=== PATIENT | male | born 1990 ===

== ENCOUNTER 2018-08-24 09:13 | Emergency (ER) | payer MEDICAID ==
[2018-08-24 09:15] VITALS: BMI 31.0
[2018-08-24 09:16] VITALS: RESP 17
[2018-08-24 09:25] VITALS: O2SAT 98
[2018-08-24] MEDS ORDERED: Sucralfate 1 gm/10 ml Oral Susp UD PO STA (09:56)
--- NOTE | 2018-08-24 10:30 | ED PDOC ---
HPI: Abdomen Time Seen by Provider: 08/24/18 09:22 Chief Complaint (Nursing): Abdominal Pain Chief Complaint (Provider): Abdominal Pain History Per: Patient History/Exam Limitations: no limitations Onset/Duration Of Symptoms: Days Current Symptoms Are (Timing): Still Present Location Of Pain/Discomfort: Epigastric Quality Of Discomfort: Burning Associated Symptoms: denies: Fever, Nausea Additional Complaint(s): Joe Winn is a 28 year old male with a past medical history of gastritis who is presenting to the ED for evaluation of acid reflux and epigastric pain onset 1 month ago. Patient states that he has presented to other [facility], [place] and [place] where they gave him antacids and told he had GERD. Dr. Devante Gaston switched him over to pantoprazole and scheduled him for an upper endoscopy fo4r September 05. Patient denies radiation of pain, nausea, back pain, fever, or chills. He admits that he came to the ED hoping that Dr. Gaston could see him here. PMD: Dr. Devante Gaston Past Medical History Reviewed: Historical Data, Nursing Documentation, Vital Signs Vital Signs: Last Vital Signs Temp 98.6 F 08/24/18 09:15 Pulse 81 08/24/18 09:15 Resp 17 08/24/18 09:15 BP 127/72 08/24/18 09:15 Pulse Ox 98 08/24/18 09:22 - Medical History PMH: Gastritis - Surgical History Surgical History: No Surg Hx - Family History Family History: States: Unknown Family Hx - Social History Current smoker - smoking cessation education provided: No Alcohol: None Drugs: Denies - Home Medications Home Medications: Ambulatory Orders Medication Instructions Recorded Sucralfate [Carafate] 1 gm PO QID #60 dose 08/24/18 - Allergies Allergies/Adverse Reactions: Allergies Allergy/AdvReac Type Severity Reaction Status Date / Time No Known Allergies Allergy Verified 08/24/18 09:22 Review of Systems ROS Statement: Except As Marked, All Systems Reviewed And Found Negative Constitutional: Negative for: Fever, Chills Gastrointestinal: Positive for: Abdominal Pain. Negative for: Nausea Musculoskeletal: Negative for: Back Pain Physical Exam - Reviewed Nursing Documentation Reviewed: Yes Vital Signs Reviewed: Yes - Physical Exam Appears: Positive for: Well (but mildly anxious appearing ), Non-toxic, No Acute Distress Head Exam: Positive for: ATRAUMATIC, NORMAL INSPECTION, NORMOCEPHALIC Skin: Positive for: Normal Color, Warm, DRY Cardiovascular/Chest: Positive for: Regular Rate, Rhythm. Negative for: Murmur Respiratory: Positive for: Normal Breath Sounds. Negative for: Respiratory Distress Gastrointestinal/Abdominal: Positive for: Soft, Tenderness (mild epigastric tenderness ) Back: Positive for: Normal Inspection Neurologic/Psych: Positive for: Alert, Oriented. Negative for: Motor/Sensory Deficits - ECG O2 Sat by Pulse Oximetry: 98 (RA) Pulse Ox Interpretation: Normal Medical Decision Making Medical Decision Making: Time: 9:56 Plan: --Carafate 1 gm PO --Lidocaine 15 ml PO Provider spoke with Dr. Gaston who stated that if ther eis no acute emergency he will see patient throught outpatient followup. Scribe Attestation: Documented by Indu Serna, acting as a scribe for Phuong Cortez MD. Provider Scribe Attestation: All medical record entries made by the Scribe were at my direction and perso jose dictated by me. I have reviewed the chart and agree that the record accurately reflects my personal performance of the history, physical exam, medical decision making, and the department course for this patient. I have also personally directed, reviewed, and agree with the discharge instructions and disposition. patient is feeling slightly better. It appears that he is concerned that someth ing life threatening may be present. Reassured that he can wait for the elective EGD for definitive diagnosis and treatment. Disposition - Clinical Impression Clinical Impression: Abdominal discomfort - Patient ED Disposition Is Patient to be Admitted: No Doctor Will See Patient In The: Office Counseled Patient/Family Regarding: Diagnosis, Need For Followup, Rx Given - Disposition Referrals: Devante Gaston MD [Staff Provider] - Disposition: Routine/Home Disposition Time: 11:30 Condition: STABLE Prescriptions: Sucralfate [Carafate] 1 gm PO QID #60 dose Instructions: Stomach Ache and Stomach Upset Forms: [email or web address] ([place]), [facility] ED School/Work Excuse Print Language: SINHALA - POA Present On Arrival: None
[2018-08-24 12:22] VITALS: BP 100/60; PULSE 78; TEMP 98
== END 2018-08-24 12:22 | disposition home or self-care (01) ==
LOC: H.ER 09:13
DX: R10.13 Epigastric pain (principal)

== ENCOUNTER 2018-08-29 10:33 | Observation (INO) | payer MEDICAID ==
[2018-08-29 10:33] VITALS: BMI 31.0
[2018-08-29] MEDS ORDERED: Sodium Chloride 0.9% 1,000 ML IV STA (10:52)
[2018-08-29] MEDS ORDERED: Sodium Chloride 0.9% 10 ML IV ONE (11:04)
[2018-08-29 11:05] LABS: BASO % 0.3 % (0.0-2.0); EOS % 0.4 % (0.0-4.0); HEMOGLOBIN 16.5 g/dL (12.0-18.0); LYMPH # 1.8 K/uL (1.0-4.3); LYMPH % 18.7 % (20.0-40.0); MEAN CELL VOLUME 85.2 fl (80.0-94.0); MEAN CORPUSCULAR HEMOGLOBIN 28.7 pg (27.0-31.0); MEAN CORPUSCULAR HGB CONC 33.7 g/dL (33.0-37.0); MONO # 0.8 K/uL (0.0-0.8); MONO % 8.2 % (0.0-10.0); NEUT # 7.1 K/uL (1.8-7.0); NEUT % 72.4 % (50.0-75.0); NRBC % 0.2 % (0.0-0.0); RBC 5.74 Mil/uL (4.40-5.90); RED CELL DISTRIBUTION WIDTH 12.9 % (11.5-14.5); WHITE BLOOD COUNT 9.8 K/uL (4.8-10.8)
[2018-08-29 11:12] LABS: PROTHROMBIN TIME 11.8 Seconds (9.8-13.1)
[2018-08-29 11:14] LABS: PARTIAL THROMBOPLASTIN TIME 32.3 Seconds (25.6-37.1)
[2018-08-29 11:15] LABS: ALB/GLOB RATIO 1.4 (1.0-2.1); ALBUMIN 5.3 g/dL (3.5-5.0); ALT/SGPT 108 U/L (21-72); AST/SGOT 61 U/L (17-59); BLOOD UREA NITROGEN 6 mg/dl (9-20); CALCIUM 10.5 mg/dL (8.4-10.2); GFR NON-AFRICAN AMERICAN > 60; LIPASE 295 U/L (23-300)
[2018-08-29 11:36] LABS: URINE BILIRUBIN NEGATIVE (NEGATIVE); URINE BLOOD NEGATIVE (NEGATIVE); URINE CLARITY CLEAR (Clear); URINE COLOR STRAW (YELLOW); URINE GLUCOSE (UA) NEG (NEGATIVE); URINE LEUKOCYTE ESTERASE NEG Leu/uL (Negative); URINE PROTEIN NEGATIVE (NEGATIVE); URINE UROBILINOGEN 0.2-1.0 mg/dL (0.2-1.0)
--- NOTE | 2018-08-29 12:00 | RAD ---
Date of service: 08/29/2018 HISTORY: Chest pain COMPARISON: No prior. TECHNIQUE: Chest PA and lateral FINDINGS: LINES AND TUBES: None. LUNG AND PLEURA: The lungs are well inflated and clear. No pleural effusion or pneumothorax. HEART AND MEDIASTINUM: The heart is not enlarged. No aortic atherosclerotic calcifications present. The hilar and mediastinal contours are within normal limits. SKELETAL STRUCTURES: The bony structures are within normal limits for the patient's age. VISUALIZED UPPER ABDOMEN: Normal. OTHER FINDINGS: None. IMPRESSION: No active pulmonary disease.
--- NOTE | 2018-08-29 12:29 | ED PDOC ---
HPI: Abdomen Time Seen by Provider: 08/29/18 10:46 Chief Complaint (Nursing): GI Problem Chief Complaint (Provider): GI Problem History Per: [employer] (Ever#[id number]: Slava) History/Exam Limitations: language barrier (irish) Onset/Duration Of Symptoms: Persistent (x1 month) Current Symptoms Are (Timing): Still Present Additional Complaint(s): 28 year old male with no significant pmHx, presents to ED with complaints of increasing upper abdominal pain with burning sensation for 1 month. He reports associated nausea, loss of appetite, small amount of blood in stool and vomit. Patient has been seen at [facility] and [place] EDs for similar symptoms and states he is scheduled for an endoscopy with GI doctor but has not had procedure performed yet. Patient has been taking Protonix, Pepcid, Carafate, and Zofran with minimal relief. Otherwise, he denies fever, chills, syncope, alcohol use, black or tarry stools. PCP: none provided GI: Dr. Devante Gaston Past Medical History Reviewed: Historical Data, Nursing Documentation, Vital Signs Vital Signs: Last Vital Signs Temp 98.1 F 08/29/18 10:52 Pulse 108 H 08/29/18 10:52 Resp 19 08/29/18 10:52 BP 165/85 H 08/29/18 10:52 Pulse Ox 99 08/29/18 10:52 - Medical History PMH: No Chronic Diseases, Gastritis - Family History Family History: States: Unknown Family Hx - Social History Current smoker - smoking cessation education provided: No Alcohol: None Drugs: Denies - Home Medications Home Medications: Ambulatory Orders Medication Instructions Recorded RX: Dicyclomine [Bentyl] 20 mg PO Q6 08/29/18 Mirtazapine [Remeron] 15 mg PO HS #30 tablet 08/31/18 Ondansetron ODT [Zofran ODT] 4 mg PO Q8 #15 odt 08/31/18 RX: Pantoprazole Sodium [Protonix] 40 mg PO DAILY #30 tablet. 08/31/18 busPIRone [Buspar] 5 mg PO DAILY #30 tab 08/31/18 - Allergies Allergies/Adverse Reactions: Allergies Allergy/AdvReac Type Severity Reaction Status Date / Time No Known Allergies Allergy Verified 08/29/18 10:52 Review of Systems ROS Statement: Except As Marked, All Systems Reviewed And Found Negative Constitutional: Negative for: Fever, Chills Gastrointestinal: Positive for: Nausea, Vomiting, Abdominal Pain (upper with burning sensation), Hematochezia, Hematemesis, Other (decreased appetite). Negative for: Melena Neurological: Negative for: Other (syncope) Physical Exam - Reviewed Nursing Documentation Reviewed: Yes Vital Signs Reviewed: Yes - Physical Exam Appears: Positive for: Uncomfortable, In Acute Distress (mildly painful) Head Exam: Positive for: ATRAUMATIC, NORMAL INSPECTION, NORMOCEPHALIC Skin: Positive for: Normal Color Eye Exam: Positive for: Normal appearance ENT: Positive for: Normal ENT Inspection. Negative for: Pharyngeal Erythema Neck: Positive for: Normal Cardiovascular/Chest: Positive for: Regular Rate, Rhythm, Chest Non Tender Respiratory: Positive for: Normal Breath Sounds. Negative for: Respiratory Distress Gastrointestinal/Abdominal: Positive for: Soft, Tenderness (epigastric mildly), Other (actively vomiting in ED - nonbloody) Back: Positive for: Normal Inspection. Negative for: L CVA Tenderness, R CVA Tenderness Extremity: Positive for: Normal ROM (upper/lower) Neurologic/Psych: Positive for: Alert, Oriented, Mood/Affect (tearful) - Laboratory Results Result Diagrams: 08/29/18 11:00 08/30/18 06:30 Lab Results: PT 11.8 Seconds (9.8-13.1) 08/29/18 11:00 INR 1.0 08/29/18 11:00 APTT 32.3 Seconds (25.6-37.1) 08/29/18 11:00 Troponin I < 0.0120 ng/mL (0.00-0.120) 08/29/18 11:00 Total Bilirubin 1.2 mg/dl (0.2-1.3) 08/29/18 11:00 AST 61 U/L (17-59) H 08/29/18 11:00 ALT 108 U/L (21-72) H 08/29/18 11:00 Alkaline Phosphatase 75 U/L (38-126) 08/29/18 11:00 Total Protein 9.1 G/DL (6.3-8.2) H 08/29/18 11:00 Albumin 5.3 g/dL (3.5-5.0) H 08/29/18 11:00 Globulin 3.8 gm/dL (2.2-3.9) 08/29/18 11:00 Albumin/Globulin Ratio 1.4 (1.0-2.1) 08/29/18 11:00 Lipase 295 U/L (23-300) 08/29/18 11:00 Urine Color Straw (YELLOW) 08/29/18 11:15 Urine Clarity Clear (Clear) 08/29/18 11:15 Urine pH 7.0 (5.0-8.0) 08/29/18 11:15 Ur Specific [place] 1.005 (1.003-1.030) 08/29/18 11:15 Urine Protein Negative mg/dL (NEGATIVE) 08/29/18 11:15 Urine Glucose (UA) Neg mg/dL (NEGATIVE) 08/29/18 11:15 Urine Ketones Negative mg/dL (NEGATIVE) 08/29/18 11:15 Urine Blood Negative (NEGATIVE) 08/29/18 11:15 Urine Nitrate Negative (NEGATIVE) 08/29/18 11:15 Urine Bilirubin Negative (NEGATIVE) 08/29/18 11:15 Urine Urobilinogen 0.2-1.0 mg/dL (0.2-1.0) 08/29/18 11:15 Ur Leukocyte Esterase Neg Anu/uL (Negative) 08/29/18 11:15 Urine RBC (Auto) 3 /hpf (0-3) 08/29/18 11:15 Urine Microscopic WBC 1 /hpf (0-5) 08/29/18 11:15 - ECG ECG Rhythm: Positive for: Normal QRS, Sinus Rhythm Rate: 63 O2 Sat by Pulse Oximetry: 99 (RA) Pulse Ox Interpretation: Normal - Radiology X-Ray: Interpreted by Me, Read By Radiologist X-Ray Interpretation: No Acute Disease Medical Decision Making Medical Decision Making: Time: 1052 Initial Plan: * EKG * Labs * CXR * Morphine 2mg IV * IV fluids * Protoniz inj 40mg IVP * Zofran 4mg IV Time: 1205 --Labs reviewed: mildly elevated ALT. Case discussed with Dr. Gaston. Patient will be admitted inpatient for endoscopy. Limited ABD US additionally ordered, pending results. Time: 1220 --Dr. Duarte made aware of case. Patient placed on teleOBS. Scribe Attestation: Documented by Melissa Price, acting as a scribe for Oziel Batres III, DO. Provider Scribe Attestation: All medical record entries made by the Scribe were at my direction and per sonally dictated by me. I have reviewed the chart and agree that the record accurately reflects my personal performance of the history, physical exam, medical decision making, and the department course for this patient. I have also personally directed, reviewed, and agree with the discharge instructions and disposition. Disposition - Clinical Impression Clinical Impression: Hematemesis, Abdominal discomfort - Patient ED Disposition Is Patient to be Admitted: Yes Counseled Patient/Family Regarding: Studies Performed - Disposition Disposition Time: 12:10 Condition: FAIR - Pt Status Changed To: Hospital Disposition Of: Observation
--- NOTE | 2018-08-29 15:06 | US ---
Date of service: 08/29/2018 HISTORY: RUQ and epigastric leann, eval GB,bilary tree, renal COMPARISON: None. TECHNIQUE: Grayscale imaging was performed. FINDINGS: LIVER: Measures 13.9 cm in length. There is diffuse increased echogenicity of the liver parenchyma. No mass. No intrahepatic bile duct dilatation. GALLBLADDER: There are no gallstones, wall thickening or pericholecystic fluid. The sonographic Pitt's sign is negative. COMMON BILE DUCT: Measures 2.6 mm. No stones. No dilatation. PANCREAS: Unremarkable as visualized. No mass. No ductal dilatation. RIGHT KIDNEY: Measures 9.1 cm in length. Normal echogenicity. No calculus, mass, or hydronephrosis. AORTA: No aneurysmal dilatation. IVC: Unremarkable. OTHER FINDINGS: None . IMPRESSION: No cholelithiasis or biliary dilatation. Diffuse increased echogenicity in the liver may reflect hepatic steatosis however parenchymal infectious/ inflammatory etiologies cannot be entirely excluded. Clinical and laboratory correlation is advised.
[2018-08-29] MEDS: Sodium Chloride 0.9% 1,000 ML IV SCH (15:30)
--- NOTE | 2018-08-29 15:31 | CARD ---
APPROVED REPORT Date of service: 08/29/2018 EKG Measurement Heart [id number] <Conclusion> Normal sinus rhythm Normal ECG
--- NOTE | 2018-08-29 23:07 | CP.PCM.CON ---
History of Present Illness - History of Present Illness History of Present Illness: 48 yo male admitted with severe epigastric abdominal pain and reflux. Has been using BID pantoprazole and carafate QID w/o relief. These symptoms were severe earlier and patient came to ER. Had been scheduled for elective endoscopy at a future date. Review of Systems - Constitutional Constitutional: absent: Chills - EENT Eyes: absent: Blurred Vision Ears: absent: Ear Discharge Nose/Mouth/Throat: absent: Epistaxis - Cardiovascular Cardiovascular: absent: Chest Pain - Respiratory Respiratory: absent: Cough - Gastrointestinal Gastrointestinal: As Per HPI - Genitourinary Genitourinary: absent: Change in Urinary Stream Past Patient History - Past Medical History & Family History Past Medical History?: No - Past Social History Smoking Status: Never Smoked - MUSCULOSKELETAL/RHEUMATOLOGICAL Hx Falls: No - GASTROINTESTINAL Hx Gastritis: Yes - PSYCHIATRIC Hx Substance Use: No - SURGICAL HISTORY Hx Surgeries: No - ANESTHESIA Hx Anesthesia: No Meds Allergies/Adverse Reactions: Allergies Allergy/AdvReac Type Severity Reaction Status Date / Time No Known Allergies Allergy Verified 08/29/18 10:52 - Medications Medications: Current Medications Sodium Chloride (Sodium Chloride 0.9%) 1,000 mls @ 100 mls/hr IV .Q10H [facility] Stop: 08/30/18 15:20 Last Admin: 08/29/18 15:30 Dose: 100 mls/hr Morphine Sulfate (Morphine) 2 mg IVP Q6 PRN PRN Reason: Pain, severe (8-10) Ondansetron HCl (Zofran Inj) 4 mg IVP Q6 PRN PRN Reason: Nausea/Vomiting Pantoprazole Sodium (Protonix Inj) 40 mg IVP DAILY [facility] Physical Exam - Constitutional Appears: No Acute Distress - Head Exam Head Exam: ATRAUMATIC - Eye Exam Eye Exam: Normal appearance - ENT Exam ENT Exam: Normal Exam - Neck Exam Neck exam: Positive for: Normal Inspection - Respiratory Exam Respiratory Exam: Clear to Auscultation Bilateral - Cardiovascular Exam Cardiovascular Exam: REGULAR RHYTHM, +S1, +S2 - GI/Abdominal Exam GI & Abdominal Exam: Normal Bowel Sounds, Soft, Tenderness Additional comments: mild epigastric tenderness Results - Vital Signs Recent Vital Signs: Last Vital Signs Temp 98.2 F 08/29/18 19:02 Pulse 64 08/29/18 21:00 Resp 20 08/29/18 19:02 BP 116/75 08/29/18 19:02 Pulse Ox 100 08/29/18 19:02 - Labs Result Diagrams: 08/29/18 11:00 08/29/18 11:00 Labs: Laboratory Results - last 24 hr 08/29/18 08/29/18 08/29/18 11:00 11:00 11:00 WBC 9.8 RBC 5.74 Hgb 16.5 Hct 48.9 MCV 85.2 MCH 28.7 MCHC 33.7 RDW 12.9 Plt Count 220 MPV 9.0 Neut % (Auto) 72.4 Lymph % (Auto) 18.7 L [place] % (Auto) 8.2 Eos % (Auto) 0.4 Baso % (Auto) 0.3 Neut # (Auto) 7.1 H Lymph # (Auto) 1.8 [place] # (Auto) 0.8 Eos # (Auto) 0.0 Baso # (Auto) 0.0 PT 11.8 INR 1.0 APTT 32.3 Sodium 141 Potassium 4.2 Chloride 100 Carbon Dioxide 23 Anion Gap 22 H BUN 6 L Creatinine 1.1 Est GFR ( Amer) > 60 Est GFR (Non-Af Amer) > 60 Random Glucose 108 Calcium 10.5 H Total Bilirubin 1.2 AST 61 H ALT 108 H Alkaline Phosphatase 75 Troponin I < 0.0120 Total Protein 9.1 H Albumin 5.3 H Globulin 3.8 Albumin/Globulin Ratio 1.4 Lipase 295 Urine Color Urine Clarity Urine pH Ur Specific [place] Urine Protein Urine Glucose (UA) Urine Ketones Urine Blood Urine Nitrate Urine Bilirubin Urine Urobilinogen Ur Leukocyte Esterase Urine RBC (Auto) Urine Microscopic WBC Alcohol, Quantitative < 10 08/29/18 11:15 WBC RBC Hgb Hct MCV MCH MCHC RDW Plt Count MPV Neut % (Auto) Lymph % (Auto) [place] % (Auto) Eos % (Auto) Baso % (Auto) Neut # (Auto) Lymph # (Auto) [place] # (Auto) Eos # (Auto) Baso # (Auto) PT INR APTT Sodium Potassium Chloride Carbon Dioxide Anion Gap BUN Creatinine Est GFR ( Amer) Est GFR (Non-Af Amer) Random Glucose Calcium Total Bilirubin AST ALT Alkaline Phosphatase Troponin I Total Protein Albumin Globulin Albumin/Globulin Ratio Lipase Urine Color Straw Urine Clarity Clear Urine pH 7.0 Ur Specific [place] 1.005 Urine Protein Negative Urine Glucose (UA) Neg Urine Ketones Negative Urine Blood Negative Urine Nitrate Negative Urine Bilirubin Negative Urine Urobilinogen 0.2-1.0 Ur Leukocyte Esterase Neg Urine RBC (Auto) 3 Urine Microscopic WBC 1 Alcohol, Quantitative Assessment & Plan (1) Abdominal discomfort Assessment and Plan: Intractable epigastric pain and reflux. R/o ulcer gastritis and esophagitis. Upper endoscopy in AM Status: Acute
[2018-08-30] MEDS: Sodium Chloride 0.9% 1,000 ML IV SCH ×2 (01:10→12:02)
--- NOTE | 2018-08-30 08:30 | CP.PCM.HP ---
History of Present Illness - History of Present Illness History of Present Illness: 28 yo male admitted with abdominal pain and nausea. Has been to ERs multiple times with similar complaints. Uses twice daily PPI and carafate 4x a day. Present on Admission - Present on Admission Any Indicators Present on Admission: No History of DVT/PE: No History of Uncontrolled Diabetes: No Urinary Catheter: No Decubitus Ulcer Present: No History Surgical Site Infection Following: None Review of Systems - Constitutional Constitutional: absent: Chills - EENT Eyes: absent: Blurred Vision Ears: absent: Decreased Hearing - Cardiovascular Cardiovascular: absent: Chest Pain - Respiratory Respiratory: absent: Cough - Gastrointestinal Gastrointestinal: As Per HPI - Genitourinary Genitourinary: absent: Change in Urinary Stream Past Patient History - Past Medical History & Family History Past Medical History?: No - Past Social History Smoking Status: Never Smoked - MUSCULOSKELETAL/RHEUMATOLOGICAL Hx Falls: No - GASTROINTESTINAL Hx Gastritis: Yes - PSYCHIATRIC Hx Substance Use: No - SURGICAL HISTORY Hx Surgeries: No - ANESTHESIA Hx Anesthesia: No Meds Allergies/Adverse Reactions: Allergies Allergy/AdvReac Type Severity Reaction Status Date / Time No Known Allergies Allergy Verified 08/29/18 10:52 Physical Exam - Constitutional Appears: No Acute Distress - Head Exam Head Exam: ATRAUMATIC - Eye Exam Eye Exam: Normal appearance - ENT Exam ENT Exam: Mucous Membranes Moist - Neck Exam Neck exam: Positive for: Normal Inspection - Respiratory Exam Respiratory Exam: Clear to Auscultation Bilateral, NORMAL BREATHING PATTERN - Cardiovascular Exam Cardiovascular Exam: REGULAR RHYTHM - GI/Abdominal Exam GI & Abdominal Exam: Normal Bowel Sounds, Soft, Tenderness Additional comments: mild epigastric tenderness Results - Vital Signs Recent Vital Signs: Last Vital Signs Temp 97.8 F 08/30/18 07:53 Pulse 90 08/30/18 07:53 Resp 18 08/30/18 07:53 BP 130/75 08/30/18 07:53 Pulse Ox 99 08/30/18 07:53 - Labs Result Diagrams: 08/29/18 11:00 08/29/18 11:00 Labs: Laboratory Results - last 24 hr 08/29/18 08/29/18 08/29/18 11:00 11:00 11:00 WBC 9.8 RBC 5.74 Hgb 16.5 Hct 48.9 MCV 85.2 MCH 28.7 MCHC 33.7 RDW 12.9 Plt Count 220 MPV 9.0 Neut % (Auto) 72.4 Lymph % (Auto) 18.7 L [place] % (Auto) 8.2 Eos % (Auto) 0.4 Baso % (Auto) 0.3 Neut # (Auto) 7.1 H Lymph # (Auto) 1.8 [place] # (Auto) 0.8 Eos # (Auto) 0.0 Baso # (Auto) 0.0 PT 11.8 INR 1.0 APTT 32.3 Sodium 141 Potassium 4.2 Chloride 100 Carbon Dioxide 23 Anion Gap 22 H BUN 6 L Creatinine 1.1 Est GFR ( Amer) > 60 Est GFR (Non-Af Amer) > 60 Random Glucose 108 Calcium 10.5 H Total Bilirubin 1.2 AST 61 H ALT 108 H Alkaline Phosphatase 75 Troponin I < 0.0120 Total Protein 9.1 H Albumin 5.3 H Globulin 3.8 Albumin/Globulin Ratio 1.4 Lipase 295 Urine Color Urine Clarity Urine pH Ur Specific [place] Urine Protein Urine Glucose (UA) Urine Ketones Urine Blood Urine Nitrate Urine Bilirubin Urine Urobilinogen Ur Leukocyte Esterase Urine RBC (Auto) Urine Microscopic WBC Alcohol, Quantitative < 10 08/29/18 11:15 WBC RBC Hgb Hct MCV MCH MCHC RDW Plt Count MPV Neut % (Auto) Lymph % (Auto) [place] % (Auto) Eos % (Auto) Baso % (Auto) Neut # (Auto) Lymph # (Auto) [place] # (Auto) Eos # (Auto) Baso # (Auto) PT INR APTT Sodium Potassium Chloride Carbon Dioxide Anion Gap BUN Creatinine Est GFR ( Amer) Est GFR (Non-Af Amer) Random Glucose Calcium Total Bilirubin AST ALT Alkaline Phosphatase Troponin I Total Protein Albumin Globulin Albumin/Globulin Ratio Lipase Urine Color Straw Urine Clarity Clear Urine pH 7.0 Ur Specific [place] 1.005 Urine Protein Negative Urine Glucose (UA) Neg Urine Ketones Negative Urine Blood Negative Urine Nitrate Negative Urine Bilirubin Negative Urine Urobilinogen 0.2-1.0 Ur Leukocyte Esterase Neg Urine RBC (Auto) 3 Urine Microscopic WBC 1 Alcohol, Quantitative Assessment & Plan (1) Abdominal discomfort Assessment and Plan: Intractable epigastric pain and reflux and multiple ER visits. Now feeling better. Continue PPI therapy. Upper endsocopy. Status: Acute
[2018-08-30] MEDS ORDERED: Lactated Ringer's 500 ML IV ONE (08:33)
[2018-08-30] MEDS ORDERED: Propofol 10 mg/ml Inj (20 ML) ONE (08:41)
[2018-08-30] MEDS ORDERED: Sodium Chloride 0.9% 50 ML IV ONE (12:09)
[2018-08-30] MEDS ORDERED: Iohexol 300 100 ML IJ ONE (12:09)
[2018-08-30 13:00] LABS: HEPATITIS B SURFACE AG Negative (NEGATIVE)
[2018-08-30 13:06] LABS: HEPATITIS A IGM NEGATIVE (NEGATIVE); HEPATITIS B CORE AB NEGATIVE (NEGATIVE)
[2018-08-30 13:17] LABS: HEPATITIS C ANTIBODY NEGATIVE (NEGATIVE)
--- NOTE | 2018-08-30 13:38 | CT ---
Date of service: 08/30/2018 PROCEDURE: CT Abdomen and Pelvis with contrast HISTORY: Nausea, abdominal pain and hematemesis COMPARISON: 2018. Abdominal ultrasound TECHNIQUE: Intravenous contrast dose: 95 cc Omnipaque 300 Radiation dose: Total exam DLP = 783.89 mGy-cm. This CT exam was performed using one or more of the following dose reduction techniques: Automated exposure control, adjustment of the mA and/or kV according to patient size, and/or use of iterative reconstruction technique. FINDINGS: LOWER THORAX: Unremarkable. LIVER: Hepatic steatosis. No focal masses. No intrahepatic bile duct dilatation or perihepatic ascites. Focal fatty sparing right hepatic lobe adjacent to the falciform ligament. GALLBLADDER AND BILE DUCTS: Unremarkable. PANCREAS: Unremarkable. No gross lesion or ductal dilatation. SPLEEN: Unremarkable. ADRENALS: Unremarkable. No mass. KIDNEYS AND URETERS: Unremarkable. No hydronephrosis. No solid mass. VASCULATURE: Unremarkable. No aortic aneurysm. No atherosclerotic calcification or mural plaque present. BOWEL: Unremarkable. No obstruction. No gross mural thickening. APPENDIX: Normal appendix. PERITONEUM: Unremarkable. No free fluid. No free air. LYMPH NODES: Unremarkable. No enlarged lymph nodes. BLADDER: Unremarkable. REPRODUCTIVE: Unremarkable. BONES: No acute fracture. OTHER FINDINGS: None. IMPRESSION: No acute findings related to/ accounting for the clinical presentation. Additional benign and/or incidental findings described above.
[2018-08-30 13:56] LABS: ALB/GLOB RATIO 1.5 (1.0-2.1); ALBUMIN 4.1 g/dL (3.5-5.0); ALT/SGPT 88 U/L (21-72); AST/SGOT 86 U/L (17-59); BLOOD UREA NITROGEN 8 mg/dl (9-20); CALCIUM 9.4 mg/dL (8.4-10.2); GFR NON-AFRICAN AMERICAN > 60
[2018-08-31 04:20] VITALS: RESP 18
--- NOTE | 2018-08-31 07:56 | CP.PCM.HP ---
History of Present Illness - History of Present Illness History of Present Illness: This is a 28 y/o male with hx of anxiety has been having recurrent epigastric pains and claims to have worsened in the past week or so hence sought medical attention. He denies any vomiting although he claims sx of GERD. He denies change in bowel habits. Denies change in stool color He has been under a lot of stress lately. He has a lot of financial obligations and his is . He was started on PPI by Dr Gaston but claims that his sx persists. Present on Admission - Present on Admission Any Indicators Present on Admission: No History of DVT/PE: No History of Uncontrolled Diabetes: No Urinary Catheter: No Decubitus Ulcer Present: No Review of Systems - Gastrointestinal Gastrointestinal: Abdominal Pain, Dyspepsia Past Patient History - Past Medical History & Family History Past Medical History?: No - Past Social History Smoking Status: Never Smoked - MUSCULOSKELETAL/RHEUMATOLOGICAL Hx Falls: No - GASTROINTESTINAL Hx Gastritis: Yes - PSYCHIATRIC Hx Substance Use: No - SURGICAL HISTORY Hx Surgeries: No - ANESTHESIA Hx Anesthesia: No Meds Allergies/Adverse Reactions: Allergies Allergy/AdvReac Type Severity Reaction Status Date / Time No Known Allergies Allergy Verified 08/29/18 10:52 Physical Exam - Head Exam Head Exam: NORMAL INSPECTION - Eye Exam Eye Exam: Normal appearance - ENT Exam ENT Exam: Mucous Membranes Moist - Respiratory Exam Respiratory Exam: Clear to Auscultation Bilateral - Cardiovascular Exam Cardiovascular Exam: REGULAR RHYTHM - GI/Abdominal Exam GI & Abdominal Exam: Normal Bowel Sounds - Neurological Exam Neurological exam: CN II-XII Intact - Psychiatric Exam Psychiatric exam: Normal Mood Results - Vital Signs Recent Vital Signs: Last Vital Signs Temp 98.0 F 08/31/18 07:52 Pulse 55 L 08/31/18 07:52 Resp 18 08/31/18 07:52 BP 126/71 08/31/18 07:52 Pulse Ox 98 08/31/18 07:52 - Labs Result Diagrams: 08/29/18 11:00 08/30/18 06:30 Labs: Laboratory Results - last 24 hr 08/29/18 08/30/18 08/30/18 15:16 06:30 11:49 Sodium 140 Potassium 3.8 Chloride 103 Carbon Dioxide 24 Anion Gap 17 BUN 8 L Creatinine 1.1 Est GFR ( Amer) > 60 Est GFR (Non-Af Amer) > 60 Random Glucose 75 Hemoglobin A1c Calcium 9.4 Phosphorus 4.4 Magnesium 2.1 Total Bilirubin 1.0 AST 86 H D ALT 88 H Alkaline Phosphatase 50 Total Protein 6.8 Albumin 4.1 Globulin 2.7 Albumin/Globulin Ratio 1.5 Alpha Fetoprotein 3.2 Hepatitis A IgM Ab Negative Hep Bs Antigen Negative Hep B Core IgM Ab Negative Hepatitis C Antibody Negative 08/30/18 11:49 Sodium Potassium Chloride Carbon Dioxide Anion Gap BUN Creatinine Est GFR ( Amer) Est GFR (Non-Af Amer) Random Glucose Hemoglobin A1c 5.4 Calcium Phosphorus Magnesium Total Bilirubin AST ALT Alkaline Phosphatase Total Protein Albumin Globulin Albumin/Globulin Ratio Alpha Fetoprotein Hepatitis A IgM Ab Hep Bs Antigen Hep B Core IgM Ab Hepatitis C Antibody Assessment & Plan (1) Gastritis Status: Acute (2) Anxiety Status: Acute (3) Adjustment disorder Status: Acute - Assessment and Plan (Free Text) Plan: Follow up endoscopy report start PPI xanax Psych eval start Lexapro 10 mg daily
[2018-08-31 12:10] VITALS: BP 118/75; TEMP 97.9; O2SAT 99
--- NOTE | 2018-08-31 14:00 | CP.PCM.CON ---
History of Present Illness - History of Present Illness History of Present Illness: consult requested for depression and anxiety This is a 28 y/o male , currently not in formal psychiatric treatment admitted to the medical floor with the chief complaint of recurrent epigastric pains and which have worsened in the past week or so hence sought medical attention. pt has been noted to be anxious and depressed,on evaluation pt reported that for the past few months he has been feeling anxious particularly in the morning when he experiences episodes of unprovoked fear, resulting in feeling of heaviness of the body, reported feeling down, episodes of crying, poor sleep , and poor appetite with significant weight loss , pt reported he has been under a lot of stress lately. He has a lot of financial obligations and his is . and he has a three years old child, currently in debt pt denied any perceptual disturbances, denied any suicidal or homicidal ideation, denied substance use on evaluation, pt is alert awake, speech normal thought process goal directed orientedx3 Past Patient History - Past Medical History & Family History Past Medical History?: No - Past Social History Smoking Status: Never Smoked - MUSCULOSKELETAL/RHEUMATOLOGICAL Hx Falls: No - GASTROINTESTINAL Hx Gastritis: Yes - PSYCHIATRIC Hx Substance Use: No - SURGICAL HISTORY Hx Surgeries: No - ANESTHESIA Hx Anesthesia: No Meds Home Medications: Home Medication List Medication Instructions Recorded Confirmed Type Mirtazapine [Remeron] 15 mg PO HS #30 tablet 08/31/18 Rx Ondansetron ODT [Zofran ODT] 4 mg PO Q8 #15 odt 08/31/18 Rx Pantoprazole Sodium [Protonix] 40 mg PO DAILY #30 tablet. 08/31/18 Rx busPIRone [Buspar] 5 mg PO DAILY #30 tab 08/31/18 Rx Allergies/Adverse Reactions: Allergies Allergy/AdvReac Type Severity Reaction Status Date / Time No Known Allergies Allergy Verified 08/29/18 10:52 - Medications Medications: Current Medications Alprazolam (Xanax) 0.5 mg PO BID PRN PRN Reason: Anxiety Morphine Sulfate (Morphine) 2 mg IVP Q6 PRN PRN Reason: Pain, severe (8-10) Nortriptyline HCl (Pamelor) 10 mg PO TID [facility] Last Admin: 08/31/18 13:09 Dose: Not Given Ondansetron HCl (Zofran Inj) 4 mg IVP Q6 PRN PRN Reason: Nausea/Vomiting Last Admin: 08/30/18 06:03 Dose: 4 mg Results - Vital Signs Recent Vital Signs: Last Vital Signs Temp 97.9 F 08/31/18 13:00 Pulse 70 08/31/18 13:00 Resp 18 08/31/18 13:00 BP 118/75 08/31/18 13:00 Pulse Ox 99 08/31/18 13:00 - Labs Result Diagrams: 08/29/18 11:00 08/30/18 06:30 Labs: Laboratory Results - last 24 hr 08/30/18 08/30/18 08/30/18 06:30 11:49 11:49 Sodium 140 Potassium 3.8 Chloride 103 Carbon Dioxide 24 Anion Gap 17 BUN 8 L Creatinine 1.1 Est GFR ( Amer) > 60 Est GFR (Non-Af Amer) > 60 Random Glucose 75 Hemoglobin A1c 5.4 Calcium 9.4 Phosphorus 4.4 Magnesium 2.1 Total Bilirubin 1.0 AST 86 H D ALT 88 H Alkaline Phosphatase 50 Total Protein 6.8 Albumin 4.1 Globulin 2.7 Albumin/Globulin Ratio 1.5 Alpha Fetoprotein 3.2 Assessment & Plan - Assessment and Plan (Free Text) Assessment: generalized anxiety disorder depressive disorder Plan: recommend starting pt on remeron 7.5mg qhs discontinue xanax start buspar 5mg bid ativan 0.25mg bid prn for anxiety pt would benefit from referral to outpatient psychiatric services on discharge
--- NOTE | 2018-08-31 23:46 | CP.PCM.DIS ---
Provider - Provider Date of Admission: 08/29/18 12:05 Attending physician: Justice Duarte MD Consults: 08/29/18 15:00 Gastroenterology Consult Routine Comment: Consulting Provider: Devante Gaston Consulting Physician: Devante Gaston Reason for Consult: vomiting epigastric pain 08/30/18 14:10 Psychiatry Consult Routine Comment: Consulting Provider: Juan Pablo Osborne Consulting Physician: Juan Pablo Osborne Reason for Consult: anxiety depression weight loss Time Spent in preparation of Discharge (in minutes): 30 Diagnosis - Discharge Diagnosis (1) Hematemesis Status: Acute Hospital Course - Lab Results Lab Results: Most Recent Lab Values WBC 9.8 K/uL (4.8-10.8) 08/29/18 11:00 RBC 5.74 Mil/uL (4.40-5.90) 08/29/18 11:00 Hgb 16.5 g/dL (12.0-18.0) 08/29/18 11:00 Hct 48.9 % (35.0-51.0) 08/29/18 11:00 MCV 85.2 fl (80.0-94.0) 08/29/18 11:00 MCH 28.7 pg (27.0-31.0) 08/29/18 11:00 MCHC 33.7 g/dL (33.0-37.0) 08/29/18 11:00 RDW 12.9 % (11.5-14.5) 08/29/18 11:00 Plt Count 220 K/uL (130-400) 08/29/18 11:00 MPV 9.0 fl (7.2-11.7) 08/29/18 11:00 Neut % (Auto) 72.4 % (50.0-75.0) 08/29/18 11:00 Lymph % (Auto) 18.7 % (20.0-40.0) L 08/29/18 11:00 Jones % (Auto) 8.2 % (0.0-10.0) 08/29/18 11:00 Eos % (Auto) 0.4 % (0.0-4.0) 08/29/18 11:00 Baso % (Auto) 0.3 % (0.0-2.0) 08/29/18 11:00 Neut # (Auto) 7.1 K/uL (1.8-7.0) H 08/29/18 11:00 Lymph # (Auto) 1.8 K/uL (1.0-4.3) 08/29/18 11:00 Jones # (Auto) 0.8 K/uL (0.0-0.8) 08/29/18 11:00 Eos # (Auto) 0.0 K/uL (0.0-0.7) 08/29/18 11:00 Baso # (Auto) 0.0 K/uL (0.0-0.2) 08/29/18 11:00 PT 11.8 Seconds (9.8-13.1) 08/29/18 11:00 INR 1.0 08/29/18 11:00 APTT 32.3 Seconds (25.6-37.1) 08/29/18 11:00 Sodium 140 mmol/l (132-148) 08/30/18 06:30 Potassium 3.8 MMOL/L (3.6-5.0) 08/30/18 06:30 Chloride 103 mmol/L (98-107) 08/30/18 06:30 Carbon Dioxide 24 mmol/L (22-30) 08/30/18 06:30 Anion Gap 17 (10-20) 08/30/18 06:30 BUN 8 mg/dl (9-20) L 08/30/18 06:30 Creatinine 1.1 mg/dl (0.8-1.5) 08/30/18 06:30 Est GFR ( Amer) > 60 08/30/18 06:30 Est GFR (Non-Af Amer) > 60 08/30/18 06:30 Random Glucose 75 mg/dL (75-110) 08/30/18 06:30 Hemoglobin A1c 5.4 % (4.2-6.5) 08/30/18 11:49 Calcium 9.4 mg/dL (8.4-10.2) 08/30/18 06:30 Phosphorus 4.4 mg/dl (2.5-4.5) 08/30/18 06:30 Magnesium 2.1 MG/DL (1.6-2.3) 08/30/18 06:30 Total Bilirubin 1.0 mg/dl (0.2-1.3) 08/30/18 06:30 AST 86 U/L (17-59) H D 08/30/18 06:30 ALT 88 U/L (21-72) H 08/30/18 06:30 Alkaline Phosphatase 50 U/L (38-126) 08/30/18 06:30 Troponin I < 0.0120 ng/mL (0.00-0.120) 08/29/18 11:00 Total Protein 6.8 G/DL (6.3-8.2) 08/30/18 06:30 Albumin 4.1 g/dL (3.5-5.0) 08/30/18 06:30 Globulin 2.7 gm/dL (2.2-3.9) 08/30/18 06:30 Albumin/Globulin Ratio 1.5 (1.0-2.1) 08/30/18 06:30 Lipase 295 U/L (23-300) 08/29/18 11:00 Alpha Fetoprotein 3.2 IU/mL (0.0-7.22) 08/30/18 11:49 Urine Color Straw (YELLOW) 08/29/18 11:15 Urine Clarity Clear (Clear) 08/29/18 11:15 Urine pH 7.0 (5.0-8.0) 08/29/18 11:15 Ur Specific [place] 1.005 (1.003-1.030) 08/29/18 11:15 Urine Protein Negative mg/dL (NEGATIVE) 08/29/18 11:15 Urine Glucose (UA) Neg mg/dL (NEGATIVE) 08/29/18 11:15 Urine Ketones Negative mg/dL (NEGATIVE) 08/29/18 11:15 Urine Blood Negative (NEGATIVE) 08/29/18 11:15 Urine Nitrate Negative (NEGATIVE) 08/29/18 11:15 Urine Bilirubin Negative (NEGATIVE) 08/29/18 11:15 Urine Urobilinogen 0.2-1.0 mg/dL (0.2-1.0) 08/29/18 11:15 Ur Leukocyte Esterase Neg Anu/uL (Negative) 08/29/18 11:15 Urine RBC (Auto) 3 /hpf (0-3) 08/29/18 11:15 Urine Microscopic WBC 1 /hpf (0-5) 08/29/18 11:15 Alcohol, Quantitative < 10 mg/dl (0-10) 08/29/18 11:00 Hepatitis A IgM Ab Negative (NEGATIVE) 08/29/18 15:16 Hep Bs Antigen Negative (NEGATIVE) 08/29/18 15:16 Hep B Core IgM Ab Negative (NEGATIVE) 08/29/18 15:16 Hepatitis C Antibody Negative (NEGATIVE) 08/29/18 15:16 - Hospital Course Hospital Course: Pt was admitted for hematemesis. CT abomen and endoscopy were done, which both resulted as negative. Psych saw the pt, as he is suffering from depression. The pt was discharged home, where he will f/u with Dr. Gaston in 1-2 weeks. Discharge Exam - Head Exam Head Exam: NORMAL INSPECTION - Eye Exam Eye Exam: EOMI, Normal appearance, PERRL Pupil Exam: NORMAL ACCOMODATION, PERRL - ENT Exam ENT Exam: Mucous Membranes Moist - Neck Exam Neck exam: Full Rom - Respiratory Exam Respiratory Exam: Clear to PA & Lateral, NORMAL BREATHING PATTERN - Cardiovascular Exam Cardiovascular Exam: REGULAR RHYTHM, +S1, +S2 - GI/Abdominal Exam GI & Abdominal Exam: Normal Bowel Sounds - Extremities Exam Extremities exam: full ROM - Back Exam Back exam: NORMAL INSPECTION - Neurological Exam Neurological exam: Alert, Normal Gait, Oriented x3 - Psychiatric Exam Psychiatric exam: Depressed - Skin Skin Exam: Dry, Normal Color, Warm Discharge Plan - Discharge Medications Prescriptions: busPIRone [Buspar] 5 mg PO DAILY #30 tab Mirtazapine [Remeron] 15 mg PO HS #30 tablet Ondansetron ODT [Zofran ODT] 4 mg PO Q8 #15 odt Pantoprazole Sodium [Protonix] 40 mg PO DAILY #30 tablet.dr - Follow Up Plan Condition: FAIR Disposition: HOME/ ROUTINE Instructions: [place] Diet, Acute Abdomen (Belly Pain), Adult (DC), Gastritis (DC) Additional Instructions: follow up with in 1-2 weeks. Referrals: [facility] [Outside] Tony Calzada MD [Staff Provider] - Justice Duarte MD [Medical Doctor] - Devante Gaston MD [Staff Provider] -
[2018-09-01 08:00] VITALS: PULSE 63
== END 2018-08-31 13:45 | disposition home or self-care (01) ==
LOC: H.ER 10:33 → H.ERHOLD 12:05 → H.TEL 14:50
PROVIDERS: ADMIT Family Medicine; ATTEND Family Medicine
DX: K92.0 Hematemesis (principal); F32.9 Major depressive disorder, single episode, unspecified; F41.1 Generalized anxiety disorder; K21.9 Gastro-esophageal reflux disease without esophagitis; K29.70 Gastritis, unspecified, without bleeding; K31.89 Other diseases of stomach and duodenum
CPT/HCPCS: 36415; 43239; 71046; 74177; 76705; 80053; 80074; 80320; 81003; 82105; 83036; 83690; 83735; 84100; 84484; 85025; 85610; 85730; 88305; 93005; 96360; 96374; 99285; C9113; G0378; J2001; J2270; J2405; J2704; J2765; J7030; J7120; Q9967